=== PATIENT | female | born 1955 | race Caucasian/White ===

== ENCOUNTER 2020-09-05 18:56 | Emergency (ER) | payer OTHER, SELFPAY ==
--- NOTE | ~2020-09-05 | CT_ITS ---
EXAMINATION: CT brain wo con DATE: 09/05/2020 19:25 INDICATION: Head injury post fall while anticoagulated. TECHNIQUE: Computed tomography (CT) of the head was performed without intravenous contrast. Sagittal and coronal reconstructions were performed. The mA was adjusted according to patient size. Iterative reconstruction technique was employed. The dose-length product was 605.33 mGy-cm. COMPARISON: None FINDINGS: No actual. No acute intracranial hemorrhage, acute infarction or abnormal extra axial fluid collectio n. There is mild scattered white matter hypoattenuation consistent with chronic small vessel ischemic disease. Ventricles are normal and symmetric. No mass/mass effect. The orbits, paranasal sinuses an d mastoid air cells are normal. IMPRESSION: 1. No fracture or acute intracranial process. 2. Mild scattered white matter hypoattenuation consistent with chronic small vessels ischemic disease . Reviewed, dictated and finalized at location A. EMS SECURITY CONSULTANT IMPRESSION: 1. No fracture or acute intracranial process. 2. Mild scattered white matter hypoattenuation consistent with chronic small ve ssels ischemic disease.
--- NOTE | ~2020-09-05 | XR_ITS ---
EXAMINATION: XR wrist RT min 3V DATE: 09/05/2020 19:31 INDICATION: Right wrist pain post fall TECHNIQUE: Posteroanterior, oblique, and lateral views of the right wrist were obtained. COMPARISON: none FINDINGS: Transverse metaphyseal fracture of the distal right radius with approximately 4 mm posterior displace ment and with posterior angulation resulting in 30 degrees dorsal tilt of the distal articular surfac e. Small minimally displaced ulnar styloid avulsion fracture. Mild polyarticular osteoarthritis at th e triscaphe, first carpometacarpal and multiple metacarpophalangeal and interphalangeal joints. Diffu se osteopenia. IMPRESSION: 1. Dorsally displaced and angulated extra-articular fracture of the distal right radial metaphysis. 2. Mild distraction of an older styloid avulsion fracture. Signed Reviewed, dictated and finalized at location A. ICE SUPERVISOR IMPRESSION: 1. Dorsally displaced and angulated extra-articular fracture of the distal righ t radial metaphysis. 2. Mild distraction of an older styloid avulsion fracture. Signed
--- NOTE | ~2020-09-05 | XR_ITS ---
EXAMINATION: XR wrist RT 2V DATE: 09/05/2020 21:44 INDICATION: Postreduction right wrist fracture TECHNIQUE: Posteroanterior and lateral views of the right wrist were obtained. COMPARISON: none FINDINGS: Interval partial reduction of the extra articular distal right radial metaphyseal fracture with decre ase in the degree of dorsal angulation with now 10 degrees dorsal tilt of the distal articular surfac e. Minimal decrease in now 3 mm dorsal displacement. Fiberglas splinting material about the right wri st and forearm obscures fine bone and soft tissue detail including the previously noted mildly displa candy ulnar styloid avulsion fracture. No other fractures identified. Mild polyarticular osteoarthritis at the right hand. IMPRESSION: 1. Some improvement in now mild dorsal displacement and dorsal angulation and extra-articular distal right radial fracture. 2. No significant change in a mildly displaced ulnar styloid avulsion fracture. Reviewed, dictated and finalized at location A. LOCK HEMMER IMPRESSION: 1. Some improvement in now mild dorsal displacement and dorsal angulation and e xtra-articular distal right radial fracture. 2. No significant change in a mildly displaced ulnar styloid avulsion fracture.
[2020-09-05 19:03] VITALS: BP 153/119; PULSE 66; RESP 14; TEMP 36.4; O2SAT 99
--- NOTE | 2020-09-05 19:31 | ED.FALL ---
HPI - Fall General Chief Complaint: Fall Stated Complaint: Fall, Right Wrist Injury Time Seen by Provider: 09/05/20 19:13 Source: patient Mode of arrival: ambulatory Limitations: no limitations History of Present Illness HPI Narrative: Patient 65-year-old female complaining of head injury and right wrist pain after she tripped and fell over her [place] lights outside of her house. Patient denies any loss of consciousness. Patient was able to ambulate after the fall. Patient denies any neck, chest, back, hip, pelvis or any other extremity pain/injury. MD complaint: fall Fall from: standing Fall witnessed: no Place fall occurred: home Loss of consciousness: none Prolonged down time: no Symptoms prior to fall: none Context: tripped/slipped Related Data Home Medications Medication Instructions Recorded Confirmed aspirin 81 mg tablet,delayed 81 mg PO DAILY 07/11/20 07/11/20 release clopidogrel 75 mg tablet 75 mg PO DAILY 07/11/20 07/11/20 famotidine 40 mg tablet 40 mg PO DAILY 07/11/20 07/11/20 fluoxetine 40 mg capsule 40 mg PO DAILY 07/11/20 07/11/20 icosapent ethyl 1 gram capsule 2 gm PO BID 07/11/20 07/11/20 insulin glargine 100 unit/mL (3 40 unit SUB-Q DAILY 07/11/20 07/11/20 mL) subcutaneous pen metoprolol tartrate 25 mg tablet 25 mg PO DAILY 07/11/20 07/11/20 pioglitazone 45 mg tablet 45 mg PO DAILY 07/11/20 07/11/20 quinapril 10 mg tablet 10 mg PO DAILY 07/11/20 07/11/20 simvastatin 80 mg tablet 80 mg PO DAILY 07/11/20 07/11/20 Allergies Allergy/AdvReac Type Severity Reaction Status Date / Time codeine AdvReac Intermediate NAUSEA/VOMI Verified 09/05/20 19:17 TING nitroglycerin AdvReac Mild PASTE= Verified 09/05/20 19:17 MILD RASH Review of Systems Review of Systems: All systems reviewed & are unremarkable except as noted in HPI and below Constitutional: Constitutional: Denies body ache(s), Denies chills, Denies excessive sweating, Denies fatigue, Denies fever(s), Denies headache(s), Denies lethargy, Denies malaise, Denies weakness and Denies weight loss Eyes: Eyes: Denies blurry vision, Denies change in vision and Denies loss of vision ENT: Denies dizziness, Denies ear discharge, Denies headache(s), Denies lip swelling, Denies epistaxis, Denies nasal congestion, Denies neck pain, Denies throat swelling and Denies tongue swelling Cardiovascular: Cardiovascular: Denies chest pain, Denies chest pain at rest, Denies chest pain with activity, Denies diaphoresis, Denies rapid heart rate, Denies edema, Denies irregular heart rhythm, Denies lightheadedness, Denies palpitations, Denies dyspnea and Denies dyspnea on exertion Respiratory: Respiratory: Denies chest congestion, Denies cough, Denies hemoptysis, Denies dyspnea and Denies dyspnea on exertion Gastrointestinal: Gastrointestinal: Denies abdominal pain, Denies melena, Denies hematochezia, Denies diarrhea, Denies nausea, Denies vomiting and Denies hematemesis Musculoskeletal: Musculoskeletal: Denies abnormal gait, Denies neck pain and Denies numbness Neurologic: Denies Abnormal speech present, Denies abnormal gait, Denies confusion, Denies dizziness, Denies headache(s), Denies focal weakness, Denies loss of vision, Denies numbness, Denies Other visual disturbances, Denies Sensory deficit (Neuro) and Denies weakness Psychiatric: Psychiatric: Denies confusion, Denies depression, Denies auditory hallucinations, Denies homicidal ideation and Denies suicidal ideation Endocrine: Endocrine: Denies cold intolerance, Denies excessive sweating, Denies fatigue, Denies heat intolerance and Denies palpitations Hematologic/Lymphatic: Hematologic/Lymphatic: Denies easy bleeding and Denies easy bruising Allergic/Immunologic: Allergic/Immunologic: Denies lip swelling, Denies throat swelling and Denies tongue swelling [facility] Past Medical History Medical History (Updated 09/05/20 @ 20:49 by Justino Jama MD) BMI 34.0-34.9,adult Diabetes last A1C 10.06 March 2020
[2020-09-05] MEDS: ACETAMINOPHEN 325 MG TABLET 650 MG PO (19:35)
[2020-09-05] MEDS: ONDANSETRON HCL ODT 4 MG TABLET PO (20:39)
[2020-09-05] MEDS: HYDROmorphone HCL INJ (*CRX) 1 MG/ML SYR IM (20:39)
--- NOTE | 2020-09-05 21:37 | PC.NURSE ---
erp dr joe reduced wrist and sugar tong applied and reviewed.
[2020-09-05] MEDS: HYDROcodone/acetaminophen (*CRX) 5-325 MG TABLET 1 TAB PO (22:12)
== END 2020-09-05 22:21 | disposition home or self-care (01) ==
PROVIDERS: Emergency Provider Emergency Medicine; PCP Registered Nurse
DX: S52.501A Unspecified fracture of the lower end of right radius, initial encounter for closed fracture (principal); S01.81XA Laceration without foreign body of other part of head, initial encounter; E11.9 Type 2 diabetes mellitus without complications; I10 Essential (primary) hypertension; W01.0XXA Fall on same level from slipping, tripping and stumbling without subsequent striking against object, initial encounter; Z79.4 Long term (current) use of insulin
CPT/HCPCS: 12011; 25605; 70450; 73100; 73110; 96372; 99285; A9270; J1170

== ENCOUNTER 2020-09-21 02:20 | Outpatient (CLI) | payer OTHER, SELFPAY ==
[2020-09-21 19:59] LABS: SARS-CoV-2 RNA PCR Negative
== END 2020-09-21 02:21 | disposition home or self-care (01) ==
LOC: ANHCOVIDDT 02:21
PROVIDERS: PCP Registered Nurse; Visit Provider Orthopaedic Surgery
DX: Z01.812 Encounter for preprocedural laboratory examination (principal); Z20.828 Contact with and (suspected) exposure to other viral communicable diseases
CPT/HCPCS: 87635; C9803; U0003

== ENCOUNTER 2020-09-24 02:05 | Day surgery (SDC) | payer OTHER, SELFPAY ==
[2020-09-21 13:00] VITALS: BMI 34.2
--- NOTE | ~2020-09-24 | XR_ITS ---
EXAMINATION: XR surgery orthopedic DATE: 09/24/2020 15:52 INDICATION: Distal right radius fracture. TECHNIQUE: 3 intraoperative fluoroscopic views of right wrist were obtained. I was not present. Fluor oscopy exposure time was 31 seconds. COMPARISON: Right wrist radiographs 09/20/2020, 09/07/2020 FINDINGS: There is a fracture of distal radius status post open reduction interval fixation with vola r plate and screws. There is 1 degree palmar tilt of the distal articular surface. There is a fractur e of the ulnar styloid. IMPRESSION: 1. Distal radius fracture status post open reduction internal fixation. 2. Avulsion fracture of the ulnar styloid. Reviewed, dictated and finalized at location A. WINDOW AND DOOR CRAFTSMAN
--- NOTE | 2020-09-24 06:55 | WPDHPUPDATE1 ---
History and Physical Update Update Date/Time: 09/24/20 06:55 History and Physical has been reviewed, including an updated exam of the patient. There are NO changes in the patient's condition. Covid test negative. Risks, benefits, and alternatives have been discussed and questions answered. Patient agrees to proceed with procedure.
--- NOTE | 2020-09-24 13:00 | WPDANESEPPF ---
Anes - Initial Pre Proc Eval Procedure: Operation Date: 09/24/20 14:00 Proposed Procedures p Open Reduction Internal Fixation Right Wrist - Kvng Martínez MD Date/Time: 09/24/20 13:00 Surgeon: Kvng Martínez MD Pre Op Diagnosis: Right Wrist Fracture Patient Data Age: 65 Gender: F Height: 1.52 m Weight: 79.54 kg Allergies Allergy/AdvReac Type Severity Reaction Status Date / Time codeine AdvReac Intermediate NAUSEA/VOMI Verified 09/21/20 12:55 TING nitroglycerin AdvReac Mild PASTE= Verified 09/21/20 12:55 MILD RASH Home Medications Medication Instructions Recorded Confirmed Type clopidogrel 75 mg tablet 75 mg PO DAILY 07/11/20 09/21/20 History famotidine 40 mg tablet 40 mg PO DAILY 07/11/20 09/21/20 History fluoxetine 40 mg capsule 40 mg PO DAILY 07/11/20 09/21/20 History icosapent ethyl 1 gram capsule 2 gm PO BID 07/11/20 09/21/20 History insulin glargine 100 unit/mL (3 40 unit SUB-Q DAILY 07/11/20 09/21/20 History mL) subcutaneous pen metoprolol tartrate 25 mg tablet 25 mg PO DAILY 07/11/20 09/21/20 History quinapril 10 mg tablet 10 mg PO DAILY 07/11/20 09/21/20 History simvastatin 80 mg tablet 80 mg PO HS 07/11/20 09/21/20 History tramadol 50 mg tablet 50 mg PO Q6H PRN #30 tablet 09/20/20 09/21/20 Rx Jardiance 25 mg PO DAILY 09/21/20 09/21/20 History pioglitazone [Actos] 15 mg PO DAILY 09/21/20 09/21/20 History hydrocodone-acetaminophen [[place]] 1 tablet PO Q6H PRN #30 tablet 09/24/20 Rx ondansetron HCl [Zofran] 4 mg PO Q8H PRN #10 tablet 09/24/20 Rx Patient hx anesthesia problems: none Family hx anesthesia problems: none PMFSH Past Medical History Medical History (Updated 09/24/20 @ 13:06 by Zaid Bradley DO) Arthritis BMI 34.0-34.9,adult Depression Diabetes last A1C 10.06 March 2020 GERD (gastroesophageal reflux disease) Heart disease Hemoglobin A1c 8.0 percent or greater March of 2020 A1c was 10.2 High cholesterol History of heart attack 2000 Hypertension Myocardial infarction Osteoporosis Vision changes Wears glasses Surgical History Surgical History (Updated 09/24/20 @ 13:06 by Zaid Bradley DO) H/O shoulder surgery bilateral, [id number] H/O: hysterectomy History of cholecystectomy History of coronary artery stent placement x5 Family History Family History Mother Hypertension Heart disease Diabetes mellitus Other Arthritis Depression High cholesterol Kidney disorder Social History Social History Smoking packs per day: 1 Smoking cigarettes per day: 20.0 Smoking status: Former smoker Tobacco type: cigarettes Second hand tobacco smoke exposure: No Smoking end date: 10/05/98 Additional smoking assessment comments: STATES 1PK/DAY/AGE 18 QUIT 1998 Alcohol intake: never Substance use: never Substance use type: does not use Living arrangements: alone Gender identity (if verbalized by the patient): Female Spiritual care concerns: No Anes - Eval Final PreProcedure Day of Procedure 09/24/20 13:00 Patient weight: obese Heart: regular rate and rhythm Lungs: clear to auscultation and normal air movement Airway: Mallampati scale class II Neurological: alert and oriented Last oral intake: >/= 8 hours ASA classification: III Emergent: no Anesthetic plan: proceed Anesthesia type and monitoring: general LMA and standard monitoring Informed Consent: The patient's anesthetic plan and its attendant risks and benefits were discussed with the patient/family/POA. Questions were solicited and answers provided to the satisfaction of the patient/family/POA.
[2020-09-24 13:16] LABS: Glucose Point of Care 158 (65-105)
[2020-09-24] MEDS: ACETAMINOPHEN 500 MG TABLET 1000 MG PO (13:33)
[2020-09-24] MEDS: KETOROLAC 15 MG/ML VIAL (*BKC) IV PUSH (13:33)
[2020-09-24] MEDS: LACTATED RINGERS 1,000 ML 30 ML IV CONT ×2 (13:34→16:05)
--- NOTE | 2020-09-24 13:37 | WPDANESPNB ---
Anes - Peripheral Nerve Block Date/Time: 09/24/20 13:37 I have discussed with the patient/family/POA the placement of a peripheral nerve block for post-operative pain management, including associated risks, benefits, complications, and side effects. Alternative methods of post-operative analgesia were detailed. Questions were solicited and answers provided to the satisfaction of the patient/family/POA. Time-Out: A pre-procedural Time-Out was completed immediately before starting the procedure and confirmed: Patient Identification, Site, Procedure, Patient Position and the Availability of Requisite Equipment. Clinical Indications: Acute post-operative pain management requested by the operative surgeon. Nerve Block Insertion Note Anes-nerve block: supraclavicular right Patient position: supine Skin prep: chlorhexidine Needle: 22 gauge, stimulating, insulated echogenic needle. Needle length: 50 mm Technique: ultrasound Injectate: bupivacaine 0.5% with epi 5 mcg/ml (30cc) Observations: tolerated well Complications: none Procedure start time:: 1410 Procedure end time:: 141
[2020-09-24] MEDS: ceFAZolin 2 GM/D5W 50 ML 2 GM/50 ML BAG IVPB (14:47)
--- NOTE | 2020-09-24 16:01 | P.OP_ITS ---
Procedure Note - Detailed Date of procedure: 09/24/20 Pre-op diagnosis: Right Wrist Fracture Post-op diagnosis: same Procedure performed: Open reduction internal fixation of right wrist intra- articular fracture Description of procedure: Indications: Patient is a 65-year-old wo man who fell onto right outstretched hand and sustained a distal radius fracture with intra-articular extension and comminution. Fracture has displacement and ang ulation, unacceptable alignment. The patient presents for operative treatment. Full discussion of risks, benefits and alternatives had with the patient. Patient verbalized understanding and wishes to proceed. What was done: After informed consent the operative extremity was marked in the preoperative holding area. Patient received intravenous antibiotics. Patient taken to the operating room where they underwent general anesthesia. Positioned supine on operating table. Time-out performed confirming the patient, patient's site of surgery and the plan. Right upper extremity prepped and draped in the usual sterile surgical fashion using a ChloraPrep skin solution. Hand and wrist exsanguinated and arm tourniquet inflated to 225 mmHg. Standard volar flexor carpi radialis incision utilized. Fifteen blade knife used to make longitudinal incision. Flexor carpi radialis tendon identified tendon sheath incised in line with skin incision. Tendon retracted to protect the neurovascular elements. Floor of the tendon sheath incised with a 15 blade knife. Flexor pollicis retracted medial. pronator quadratus then divided off the watershed line and reflected ulnarward to expose the distal radius and the fracture. Fracture was then reduced provisionally pinned. Image intensification confirm reduction. Fixation achieved with the distal radius volar plate. This was provisionally pinned into place and confirmed with image intensification. Fixation to the proximal fragment with a 3.5 mm screw. Distal fracture fixation achieved with 2.0 mm locking pegs and 2.0 mm fully threaded locking screws for the radial styloid. Fixation was then completed proximally with the remaining 3.5 mm screws. Final reduction of the fracture, alignment of the wrist joint and placement of the hardware verified with image intensification. Wound thoroughly irrigated with antibiotic solution. Pronator repaired with 3 0 Monocryl interrupted suture. Skin closed with interrupted subcutaneous 000 Monocryl interrupted suture and running 000 Monocryl subcuticular stitch. Local anesthetic with 0.5% Marcaine. Sterile dressing applied. Padded dressing and splint then applied. Tourniquet released and good capillary refill noted in the fingers and thumb. Patient awoke from anesthesia, extubated and taken to the recovery room in stable condition. All sponge and instrument counts correct at the end of case. Implants: Biomet volar distal radius locking plate with 3.5 mm screws x3 and 2.0 mm locking pegs Anesthesia: GLMA Surgeon: Kvng Martínez MD Airconditioning Plant Operator: 1st surveyor instrument assistant Estimated blood loss (mL): 10 Tourniquet time (min): 45 Drains: No Packing: No Pathology: none sent Complications: None Condition: stable Disposition: PACU
[2020-09-24 16:05] VITALS: BP 183/83; PULSE 83; RESP 13; TEMP 36.1; O2SAT 100
[2020-09-24 16:20] VITALS: BP 185/75; PULSE 71; RESP 14; TEMP 36.2; O2SAT 100
[2020-09-24 16:22] LABS: Glucose Point of Care 120 (65-105)
[2020-09-24 16:35] VITALS: BP 182/82; PULSE 69; RESP 13; TEMP 36.1; O2SAT 96
[2020-09-24 16:42] VITALS: BP 188/80; PULSE 76; RESP 16
[2020-09-24 17:20] VITALS: BP 188/53; PULSE 67; RESP 16
--- NOTE | 2020-09-24 17:32 | SUR.PHASEII ---
PT ASSISTED TO GET DRESSED D/T RIGHT ARM NERVE BLOCK.
== END 2020-09-24 17:56 | disposition home or self-care (01) ==
PROVIDERS: PCP Registered Nurse; Visit Provider Orthopaedic Surgery
PROC: (CPT 25575; principal; 2020-09-24 14:00)
DX: S52.571A Other intraarticular fracture of lower end of right radius, initial encounter for closed fracture (principal); W19.XXXA Unspecified fall, initial encounter; G89.18 Other acute postprocedural pain; E11.9 Type 2 diabetes mellitus without complications; I11.9 Hypertensive heart disease without heart failure; E78.00 Pure hypercholesterolemia, unspecified; I25.2 Old myocardial infarction; M81.0 Age-related osteoporosis without current pathological fracture; K21.9 Gastro-esophageal reflux disease without esophagitis; M19.90 Unspecified osteoarthritis, unspecified site; F32.9 Major depressive disorder, single episode, unspecified; Z95.5 Presence of coronary angioplasty implant and graft; Z87.891 Personal history of nicotine dependence; E66.9 Obesity, unspecified; Z68.34 Body mass index [BMI] 34.0-34.9, adult; Z79.02 Long term (current) use of antithrombotics/antiplatelets; Z79.4 Long term (current) use of insulin
CPT/HCPCS: 25608; 64415; A4565; A9270; C1713; C9803; J0690; J1100; J1885; J2250; J2405; J2704; J3010; J7120; U0003

== ENCOUNTER 2021-03-14 15:05 | Emergency (ER) | payer OTHER, SELFPAY ==
[2021-03-14 15:21] VITALS: BP 145/66; PULSE 120; RESP 16; TEMP 36.1; O2SAT 96
[2021-03-14 15:25] VITALS: BP 159/74; PULSE 107
[2021-03-14 15:44] LABS: Hemoglobin 15.7 g/dL (12.0-15.0); Immature Platelet Fraction Pct 7.9 % (0.9-11.2); Mean Corpuscular HGB Conc 32.7 g/dl (32-36); Mean Corpuscular Hemoglobin 29.5 pg (26-34); Mean Corpuscular Volume 90.2 fl (80-100); Mean Platelet Volume 11.8 fl (7.4-10.4); Platelet Count Result 125 k/mm3 (150-375); Red Blood Count 5.32 M/mm3 (4.2-5.4); Red Cell Distribution Width 13.9 % (11.5-14.5); White Blood Count 4.8 K/mm3 (4.5-10.0)
[2021-03-14 15:53] LABS: Alanine Aminotransferase 149 U/L (4-35); Albumin Level 4.2 g/dL (3.5-5.1); Alkaline Phosphatase 160 U/L (38-126); Anion Gap 12 mmol/L (8-16); Aspartate Amino Transferase 226 U/L (14-36); Blood Urea Nitrogen 32 mg/dL (7-17); Calcium 9.8 mg/dL (8.4-10.2); Carbon Dioxide 25 mmol/L (22-30); Chloride 94 mmol/L (98-107); Estimated CRCL calculation 41 ml/min; Estimated Glomerular Filt Rate 50; Glucose 348 mg/dL (65-105); Lipase 223 U/L (23-300); Potassium 4.8 mmol/L (3.4-5.0); Sodium 131 mmol/L (137-145)
[2021-03-14 16:10] LABS: Band Neutrophils Percent 4 % (0-6); Lymphocytes Absolute Manual 1.92 K/mm3 (1.1-4.5); Monocytes Absolute Manual 0.57 K/mm3 (0.1-0.90); Monocytes Percent Manual 12 % (3-9); Neutrophils Percent Manual 44 % (46-73); Total Cells Counted 100
[2021-03-14 16:28] LABS: Add Urine Microscopic? YES; Appearance Urine Cloudy (Clear); Bilirubin Urine 1+ (Negative); Blood Urine 1+ (Negative); Color Urine Amber (Yellow); Glucose Urine UA 2+ mg/dL (Negative); Hyaline Casts Urine 20-29 /lpf; Ketones Urine Negative (Negative); Leukocyte Esterase Ur Negative LEU/UL (Negative); Mucus Urine Heavy /lpf; Nitrate Urine Negative (Negative); Protein Urine 2+ mg/dL (Negative); Specific Grav Ur 1.028 (1.001-1.035); Squamous Epithelial Cell Urine Many /hpf (Few); WBC Urine 0-3 /hpf
[2021-03-14 16:56] VITALS: BP 126/70; PULSE 112
[2021-03-14 16:57] VITALS: BP 104/60; PULSE 122
[2021-03-14 17:03] VITALS: BP 126/70; PULSE 109; O2SAT 97
[2021-03-14] MEDS: SODIUM CHLORIDE 0.9% IV 1,000 ML 999 ML IV CONT (17:22)
[2021-03-14] MEDS: ONDANSETRON INJ 4 MG/2 ML VIAL IV PUSH (17:22)
--- NOTE | 2021-03-14 17:46 | ED.NAVMDI ---
HPI - Nausea/Vomiting/Diarrhea General Chief complaint: Nausea/Vomiting/Diarrhea Stated complaint: SICK SINCE THURSDAY N/V/D Time Seen by Provider: 03/14/21 16:18 Source: patient Mode of arrival: ambulatory Limitations: no limitations History of Present Illness HPI Narrative: 65-year-old with a history of hypertension diabetes here with complaints of nausea, vomiting and diarrhea since yesterday. She states that she had multiple episodes of vomiting since morning. She denies any fever or chills. Has mild abdominal cramping. MD elicited complaint: nausea, vomiting, diarrhea and abdominal pain Onset (ago): day(s) (1) Associated abdominal pain: Yes Location of pain: epigastric Exacerbating factors: none Relieving factors: none Related Data Home Medications Medication Instructions Recorded Confirmed clopidogrel 75 mg tablet 75 mg PO DAILY 07/11/20 12/12/20 famotidine 40 mg tablet 40 mg PO DAILY 07/11/20 12/12/20 fluoxetine 40 mg capsule 40 mg PO DAILY 07/11/20 12/12/20 icosapent ethyl 1 gram capsule 2 gm PO BID 07/11/20 12/12/20 insulin glargine 100 unit/mL (3 40 unit SUB-Q DAILY 07/11/20 12/12/20 mL) subcutaneous pen metoprolol tartrate 25 mg tablet 25 mg PO DAILY 07/11/20 12/12/20 quinapril 10 mg tablet 10 mg PO DAILY 07/11/20 12/12/20 simvastatin 80 mg tablet 80 mg PO HS 07/11/20 12/12/20 Jardiance 25 mg PO DAILY 09/21/20 12/12/20 pioglitazone [Actos] 15 mg PO DAILY 09/21/20 12/12/20 Allergies Allergy/AdvReac Type Severity Reaction Status Date / Time codeine AdvReac Intermediate NAUSEA/VOMI Verified 12/12/20 10:14 TING nitroglycerin AdvReac Mild PASTE= Verified 12/12/20 10:14 MILD RASH Review of Systems Review of Systems: All systems reviewed & are unremarkable except as noted in HPI and below Constitutional: Constitutional: Reports no additional constitutional complaints Eyes: Eyes: Reports no additional eye complaints ENT: Reports system reviewed and no additional complaints, except as documented Cardiovascular: Cardiovascular: Reports no additional cardiovascular complaints Respiratory: Respiratory: Reports no additional respiratory complaints Gastrointestinal: Gastrointestinal: Reports as per HPI Musculoskeletal: Musculoskeletal: Reports no additional musculoskeletal complaints PMFSH Past Medical History Medical History Arthritis BMI 34.0-34.9,adult Depression Diabetes last A1C 10.06 March 2020 GERD (gastroesophageal reflux disease) Heart disease Hemoglobin A1c 8.0 percent or greater March of 2020 A1c was 10.2 High cholesterol History of heart attack 2000 Hypertension Myocardial infarction Osteoporosis Vision changes Wears glasses Surgical History Surgical History H/O shoulder surgery bilateral, [id number] H/O: hysterectomy History of cholecystectomy History of coronary artery stent placement x5 Family History Family History Mother Hypertension Heart disease Diabetes mellitus Other Arthritis Depression High cholesterol Kidney disorder Social History Social History Smoking packs per day: 1 Smoking cigarettes per day: 20.0 Tobacco type: cigarettes Second hand tobacco smoke exposure: No Smoking end date: 10/05/98 Additional smoking assessment comments: STATES 1PK/DAY/AGE 18 QUIT 1998 Alcohol intake: never Substance use: never Substance use type: does not use Gender identity (if verbalized by the patient): Female Spiritual care concerns: No Exam Narrative: Exam Narrative: GENERAL: Well-appearing, well-nourished, and in no acute distress. HEAD: Normocephalic, atraumatic. EYES: PERRLA and EOMI. NECK: Supple. CHEST: Clear to auscultation. No respiratory distress. HEART: Regular rate and rhythm. No murmur heard. Normal kathya
[2021-03-14 18:40] VITALS: BP 145/62; PULSE 95; RESP 16; O2SAT 99
--- NOTE | 2021-04-02 08:33 | PC.NURSE ---
LATE ENTRY This note is being entered to document information to the patient's record. The following information was omitted on [03/14/21], by [Diane Milligan RN]. NS stop time is 1814.
--- NOTE | 2021-04-04 16:29 | PC.NURSE ---
IV Fluids infused at 1830 on 03/14/21
== END 2021-03-14 18:28 | disposition home or self-care (01) ==
PROVIDERS: Emergency Medicine; Emergency Provider Family Medicine; PCP Registered Nurse
DX: K52.9 Noninfective gastroenteritis and colitis, unspecified (principal); E11.9 Type 2 diabetes mellitus without complications; M19.90 Unspecified osteoarthritis, unspecified site; F32.9 Major depressive disorder, single episode, unspecified; K21.9 Gastro-esophageal reflux disease without esophagitis; E78.00 Pure hypercholesterolemia, unspecified; I25.2 Old myocardial infarction; I11.9 Hypertensive heart disease without heart failure; M81.0 Age-related osteoporosis without current pathological fracture; Z95.5 Presence of coronary angioplasty implant and graft; Z79.899 Other long term (current) drug therapy; Z79.4 Long term (current) use of insulin; Z87.891 Personal history of nicotine dependence
CPT/HCPCS: 36415; 80053; 81001; 83690; 85025; 85055; 96361; 96374; 99284; J2405; J7030

== ENCOUNTER 2021-10-23 01:01 | Day surgery (SDC) | payer MEDICARE, SELFPAY ==
[2021-10-17 11:53] VITALS: BMI 33.1
--- NOTE | 2021-10-23 07:33 | WPDANESEPPF ---
Anes - Initial Pre Proc Eval Procedure: Operation Date: 10/23/21 10:30 Proposed Procedures p Screening Colonoscopy - Evan Morales MD Date/Time: 10/23/21 07:33 Surgeon: Evan Morales MD Pre Op Diagnosis: neoplasm screening Patient Data Age: 66 Gender: F Height: 1.52 m Weight: 77 kg Allergies Allergy/AdvReac Type Severity Reaction Status Date / Time codeine AdvReac Intermediate NAUSEA/VOMI Verified 10/23/21 09:24 TING nitroglycerin AdvReac Mild PASTE= Verified 10/23/21 09:24 MILD RASH Home Medications Medication Instructions Recorded Confirmed Type clopidogrel 75 mg tablet 75 mg PO DAILY 07/11/20 10/23/21 History famotidine 40 mg tablet 40 mg PO DAILY 07/11/20 10/23/21 History fluoxetine 40 mg capsule 40 mg PO DAILY 07/11/20 10/23/21 History insulin glargine 100 unit/mL (3 50 unit SUB-Q QPM 07/11/20 10/23/21 History mL) subcutaneous pen metoprolol tartrate 25 mg tablet 25 mg PO DAILY 07/11/20 10/23/21 History simvastatin 80 mg tablet 80 mg PO HS 07/11/20 10/23/21 History Jardiance 25 mg PO DAILY 09/21/20 10/23/21 History pioglitazone [Actos] 15 mg PO DAILY 09/21/20 10/23/21 History omega-3 fatty acids-vitamin E 1 cap PO DAILY 10/17/21 10/23/21 History [Fish Oil] quinapril 40 mg PO DAILY 10/17/21 10/23/21 History Patient hx anesthesia problems: none Family hx anesthesia problems: none Results Review: All pre-operative results and documents have been reviewed as part of the pre-operative evaluation. [facility] Past Medical History Medical History (Updated 10/23/21 @ 07:33 by Zaid Bradley DO) Arthritis BMI 34.0-34.9,adult CAD (coronary artery disease) Depression Diabetes last A1C 10.06 March 2020 GERD (gastroesophageal reflux disease) Heart disease Hemoglobin A1c 8.0 percent or greater March of 2020 A1c was 10.2 High cholesterol History of heart attack 2000 Hypertension Left knee DJD Myocardial infarction Osteoporosis Right knee DJD TIA (transient ischemic attack) Vision changes Wears glasses Surgical History Surgical History H/O shoulder surgery bilateral, [id number] H/O: hysterectomy History of cholecystectomy History of coronary artery stent placement x5 Family History Family History Mother Hypertension Heart disease Diabetes mellitus Other Arthritis Depression High cholesterol Kidney disorder Social History Social History Smoking packs per day: 1 Smoking cigarettes per day: 20.0 Years smoked: 30 Smoking pack-years: 30.00 Smoking status: Former smoker Tobacco type: cigarettes Second hand tobacco smoke exposure: No Smoking end date: 10/05/98 Additional smoking assessment comments: STATES 1PK/DAY/AGE 18 QUIT 1998 Alcohol intake: never Substance use: never Substance use type: does not use Living arrangements: with family Gender identity (if verbalized by the patient): Female Spiritual care concerns: No Anes - Eval Final PreProcedure Day of Procedure 10/23/21 07:33 Patient weight: obese Heart: regular rate and rhythm Lungs: clear to auscultation and normal air movement Airway: Mallampati scale class II Neurological: alert and oriented Last oral intake: >/= 8 hours ASA classification: III Emergent: no Anesthetic plan: proceed Anesthesia type and monitoring: general GIVS and standard monitoring Results Review: All pre-operative results and documents have been reviewed as part of the pre-operative evaluation. Informed Consent: The patient's anesthetic plan and its attendant risks and benefits were discussed with the patient/family/POA. Questions were solicited and answers provided to the satisfaction of the patient/family/POA.
[2021-10-23 09:15] VITALS: BP 141/67; PULSE 63; RESP 16; TEMP 36.7; O2SAT 97; BMI 33.4
[2021-10-23] MEDS: LACTATED RINGERS 1,000 ML 150 ML IV CONT (09:38)
[2021-10-23 09:47] LABS: Glucose Point of Care 149 mg/dl (65-105)
--- NOTE | 2021-10-23 10:12 | PM.HPGS ---
History of Present Illness History of Present Illness Consent: Risks, benefits, and alternatives have been discussed and questions answered. Patient agrees to proceed with procedure. Chief complaint: neoplasm screening Narrative: Zahra Muhammad is a 66 year old female here for screening colonoscopy, last one over 5 years ago. Review of Systems Constitutional: Constitutional: Denies headache(s) and Denies weakness Eyes: Eyes: Denies blurry vision ENT: Reports Normal hearing present, Denies headache(s) and Denies neck pain Cardiovascular: Cardiovascular: Denies chest pain and Denies dyspnea Respiratory: Respiratory: Denies dyspnea Gastrointestinal: Gastrointestinal: Reports no additional gastrointestinal complaints Genitourinary: Genitourinary: Denies dysuria Musculoskeletal: Musculoskeletal: Denies neck pain Integumentary/Breasts: Skin/Breast: Denies dry skin Neurologic: Reports Normal hearing present, Denies headache(s) and Denies weakness Psychiatric: Psychiatric: Denies anxiety Endocrine: Endocrine: Denies change in body appearance Hematologic/Lymphatic: Hematologic/Lymphatic: Denies easy bleeding Allergic/Immunologic: Allergic/Immunologic: Denies urticaria PMFSH Past Medical History Medical History (Updated 10/23/21 @ 10:13 by Evan Morales MD) Arthritis BMI 34.0-34.9,adult CAD (coronary artery disease) Colon cancer screening Depression Diabetes last A1C 10.06 March 2020 GERD (gastroesophageal reflux disease) Heart disease Hemoglobin A1c 8.0 percent or greater March of 2020 A1c was 10.2 High cholesterol History of heart attack 2000 Hypertension Left knee DJD Myocardial infarction Osteoporosis Right knee DJD TIA (transient ischemic attack) Vision changes Wears glasses Surgical History Surgical History H/O shoulder surgery bilateral, [id number] H/O: hysterectomy History of cholecystectomy History of coronary artery stent placement x5 Family History Family History Mother Hypertension Heart disease Diabetes mellitus Other Arthritis Depression High cholesterol Kidney disorder Social History Social History Smoking packs per day: 1 Smoking cigarettes per day: 20.0 Years smoked: 30 Smoking pack-years: 30.00 Smoking status: Former smoker Tobacco type: cigarettes Second hand tobacco smoke exposure: No Smoking end date: 10/05/98 Additional smoking assessment comments: STATES 1PK/DAY/AGE 18 QUIT 1998 Alcohol intake: never Substance use: never Substance use type: does not use Living arrangements: with family Gender identity (if verbalized by the patient): Female Spiritual care concerns: No Meds Home Medications and Allergies Home Medications Medication Instructions Recorded Confirmed Type clopidogrel 75 mg tablet 75 mg PO DAILY 07/11/20 10/23/21 History famotidine 40 mg tablet 40 mg PO DAILY 07/11/20 10/23/21 History fluoxetine 40 mg capsule 40 mg PO DAILY 07/11/20 10/23/21 History insulin glargine 100 unit/mL (3 50 unit SUB-Q QPM 07/11/20 10/23/21 History mL) subcutaneous pen metoprolol tartrate 25 mg tablet 25 mg PO DAILY 07/11/20 10/23/21 History simvastatin 80 mg tablet 80 mg PO HS 07/11/20 10/23/21 History Jardiance 25 mg PO DAILY 09/21/20 10/23/21 History pioglitazone [Actos] 15 mg PO DAILY 09/21/20 10/23/21 History omega-3 fatty acids-vitamin E 1 cap PO DAILY 10/17/21 10/23/21 History [Fish Oil] quinapril 40 mg PO DAILY 10/17/21 10/23/21 History Allergies Allergy/AdvReac Type Severity Reaction Status Date / Time codeine AdvReac Intermediate NAUSEA/VOMI Verified 10/23/21 09:24 TING nitroglycerin AdvReac Mild PASTE= Verified 10/23/21 09:24 MILD RASH Vital Signs Vital Signs - 24 hr 10/23/21 09:15 Temperature 98.0 F Pulse Rate 63 Respiratory
[2021-10-23 10:30] VITALS: BP 88/48; PULSE 56; RESP 14; O2SAT 92
[2021-10-23 10:40] VITALS: BP 136/68; PULSE 55; RESP 16; O2SAT 100
[2021-10-23 10:50] VITALS: BP 145/74; PULSE 59; RESP 19; O2SAT 100
== END 2021-10-23 11:03 | disposition home or self-care (01) ==
PROVIDERS: PCP Registered Nurse; Visit Provider Internal Medicine Gastroenterology
PROC: 0DJD8ZZ Inspection of Lower Intestinal Tract, Via Natural or Artificial Opening Endoscopic (ICD-10-PCS; CPT 45378; principal; 2021-10-23 10:30)
DX: Z12.11 Encounter for screening for malignant neoplasm of colon (principal); K64.8 Other hemorrhoids; I11.9 Hypertensive heart disease without heart failure; I25.10 Atherosclerotic heart disease of native coronary artery without angina pectoris; E11.9 Type 2 diabetes mellitus without complications; E78.00 Pure hypercholesterolemia, unspecified; I25.2 Old myocardial infarction; K21.9 Gastro-esophageal reflux disease without esophagitis; F32.9 Major depressive disorder, single episode, unspecified; M81.0 Age-related osteoporosis without current pathological fracture; Z86.73 Personal history of transient ischemic attack (TIA), and cerebral infarction without residual deficits; Z95.5 Presence of coronary angioplasty implant and graft; Z87.891 Personal history of nicotine dependence; Z79.02 Long term (current) use of antithrombotics/antiplatelets; Z79.4 Long term (current) use of insulin; Z79.84 Long term (current) use of oral hypoglycemic drugs
CPT/HCPCS: G0121; 82948; J2704; J7120

== ENCOUNTER 2022-03-09 14:45 | Emergency (ER) | payer MEDICARE, SELFPAY ==
--- NOTE | ~2022-03-09 | XR_ITS ---
EXAM: XR ankle LT min 3V, XR tibia fibula LT 2V DATE: 03/09/2022 16:02 HISTORY: fall , proximal tib-fib pain. COMPARISON: None available. FINDINGS: Decreased mineralization. Oblique nondisplaced left distal fibular fracture extending roug hly to the level of the joint line. No other fracture detected. No lytic or blastic lesion. Degenerat naomi change at the tibiotalar articulation. Plantar and Achilles enthesopathy. No erosion or periostea l change. Left ankle joint effusion. Anterior and lateral ankle joint swelling. IMPRESSION: [place] B type left fibular fracture. Left ankle joint effusion. Left ankle swelling. Reviewed, dictated and finalized at location [facility]. IMPRESSION: [place] B type left fibular fracture. Left ankle joint effusion. Left ankle swelling.
--- NOTE | ~2022-03-09 | XR_ITS ---
EXAM: XR hip RT min 2V DATE: 03/09/2022 16:02 HISTORY: fall . COMPARISON: None available. FINDINGS: Decreased mineralization. No fracture or dislocation. No lytic or blastic lesion. Degenera tive changes in the SI joint and right hip. No erosion or periosteal change. Soft tissues within norm al limits. IMPRESSION: No acute osseous finding in the right hip. Reviewed, dictated and finalized at location [facility].
[2022-03-09 14:50] VITALS: BP 147/45; PULSE 59; RESP 18; TEMP 36.2; O2SAT 100
--- NOTE | 2022-03-09 15:29 | ED.GENADULT ---
HPI - General Adult General Chief complaint: Extremity Injury, Lower Stated complaint: Ankle pain Time Seen by Provider: 03/09/22 14:56 History of Present Illness HPI narrative: 66-year-old female presenting to the emergency department for evaluation of left ankle pain and right hip pain. Patient states she was working in her yard when she slipped on a wet rock causing her to fall. Patient landed on her right hip but her left ankle was underneath her. Patient states she was able to get up on her own and was able to weight-bear on the right. Patient states she was having significant pain at the left ankle. Patient denies striking her head denies any loss of consciousness. Related Data Home Medications Medication Instructions Recorded Confirmed clopidogrel 75 mg tablet 75 mg PO DAILY 07/11/20 11/12/21 famotidine 40 mg tablet 40 mg PO DAILY 07/11/20 11/12/21 fluoxetine 40 mg capsule 40 mg PO DAILY 07/11/20 11/12/21 insulin glargine 100 unit/mL (3 50 unit subcut QPM 07/11/20 11/12/21 mL) subcutaneous pen (Konnektidaglar KwikPen U-100 Insulin) metoprolol tartrate 25 mg tablet 25 mg PO DAILY 07/11/20 11/12/21 simvastatin 80 mg tablet 80 mg PO HS 07/11/20 11/12/21 empagliflozin 25 mg tablet 25 mg PO DAILY 09/21/20 11/12/21 (Jardiance) pioglitazone 15 mg tablet (Actos) 15 mg PO DAILY 09/21/20 11/12/21 omega-3 fatty acids-vitamin E 1 cap PO DAILY 10/17/21 10/23/21 1,000 mg capsule quinapril 40 mg tablet 40 mg PO DAILY 10/17/21 10/23/21 Allergies Allergy/AdvReac Type Severity Reaction Status Date / Time codeine AdvReac Intermediate NAUSEA/VOMI Verified 03/09/22 14:53 TING nitroglycerin AdvReac Mild PASTE= Verified 03/09/22 14:53 MILD RASH Review of Systems Review of Systems: CONSTITUTIONAL: Denies fever, chills, or sweats. EYES: Denies visual changes, redness, or discharge. ENT: Denies rhinorrhea, congestion, sore throat, or otalgia. CARDIOVASCULAR: Denies chest pain, palpitations, or edema. RESPIRATORY: Denies cough or dyspnea. GASTROINTESTINAL: Denies abdominal pain, nausea, vomiting, or diarrhea. GENITOURINARY: Denies dysuria or hematuria. SKIN: Denies rash or itching. MUSCULOSKELETAL: See HPI NEUROLOGIC: Denies headache, numbness, or weakness. [facility] Past Medical History Medical History (Updated 03/10/22 @ 17:34 by Jose Carlos Taylor MD) Arthritis BMI 34.0-34.9,adult CAD (coronary artery disease) Colon cancer screening Depression Diabetes last A1C 10.06 March 2020 DJD of right shoulder GERD (gastroesophageal reflux disease) Heart disease Hemoglobin A1c 8.0 percent or greater March of 2020 A1c was 10.2 High cholesterol History of heart attack 2000 Hypertension Left knee DJD Myocardial infarction Osteoporosis Right knee DJD TIA (transient ischemic attack) Vision changes Wears glasses Surgical History Surgical History H/O shoulder surgery bilateral, [id number] H/O: hysterectomy History of cholecystectomy History of coronary artery stent placement x5 Family History Family History Mother Hypertension Heart disease Diabetes mellitus Other Arthritis Depression High cholesterol Kidney disorder Social History Social History Smoking packs per day: 1 Smoking cigarettes per day: 20.0 Years smoked: 30 Smoking pack-years: 30.00 Tobacco type: cigarettes Second hand tobacco smoke exposure: No Smoking end date: 10/05/98 Additional smoking assessment comments: STATES 1PK/DAY/AGE 18 QUIT 1998 Alcohol intake: never Substance use: never Substance use type: does not use Gender identity (if verbalized by the patient): Female Spiritual care concerns: No Exam Narrative: APPEARANCE: Well appearing, no pain, no distress, well-nourished. HEAD: normocephalic, atraumatic. RESPIRATORY: Airway patent, respirations n
[2022-03-09] MEDS: HYDROcodone/acetaminophen (*CRX) 5-325 MG TABLET 1 TAB PO (16:53)
--- NOTE | 2022-04-03 11:20 | PC.NURSE ---
LATE ENTRY This note is being entered to document information to the patient's record. The following information was omitted on [03/09/2022], by [Gilberto Rice]. short leg posterior splint applied to left lower leg.
== END 2022-03-09 17:00 | disposition home or self-care (01) ==
PROVIDERS: Emergency Provider Emergency Medicine; PCP Registered Nurse
DX: S82.832A Other fracture of upper and lower end of left fibula, initial encounter for closed fracture (principal); I25.10 Atherosclerotic heart disease of native coronary artery without angina pectoris; E11.9 Type 2 diabetes mellitus without complications; I25.2 Old myocardial infarction; I10 Essential (primary) hypertension; E78.00 Pure hypercholesterolemia, unspecified; M81.0 Age-related osteoporosis without current pathological fracture; M17.0 Bilateral primary osteoarthritis of knee; K21.9 Gastro-esophageal reflux disease without esophagitis; Z86.73 Personal history of transient ischemic attack (TIA), and cerebral infarction without residual deficits; Z95.5 Presence of coronary angioplasty implant and graft; Z87.891 Personal history of nicotine dependence; W01.0XXA Fall on same level from slipping, tripping and stumbling without subsequent striking against object, initial encounter; Z79.4 Long term (current) use of insulin; Z79.84 Long term (current) use of oral hypoglycemic drugs
CPT/HCPCS: 29515; 73502; 73590; 73610; 99284; A9270

== ENCOUNTER 2022-04-06 20:40 | Emergency (ER) | payer OTHER, MEDICARE, SELFPAY ==
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
[2022-04-06 20:50] VITALS: BP 171/64; PULSE 64; RESP 16; TEMP 36.4; O2SAT 99
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
[2022-04-06 21:30] VITALS: BP 150/58; PULSE 65; RESP 16; O2SAT 98
[2022-04-07 00:01] VITALS: BP 154/53; PULSE 60; TEMP 36.8; O2SAT 100
== END 2022-04-07 00:57 | disposition home or self-care (01) ==
PROVIDERS: Emergency Provider Emergency Medicine; PCP Registered Nurse
DX: S19.9XXA Unspecified injury of neck, initial encounter (principal); I25.10 Atherosclerotic heart disease of native coronary artery without angina pectoris; E11.9 Type 2 diabetes mellitus without complications; I25.2 Old myocardial infarction; I11.9 Hypertensive heart disease without heart failure; E78.00 Pure hypercholesterolemia, unspecified; K21.9 Gastro-esophageal reflux disease without esophagitis; Z79.4 Long term (current) use of insulin; M81.0 Age-related osteoporosis without current pathological fracture; M17.0 Bilateral primary osteoarthritis of knee; Z86.73 Personal history of transient ischemic attack (TIA), and cerebral infarction without residual deficits; Z95.5 Presence of coronary angioplasty implant and graft; Z87.891 Personal history of nicotine dependence; V43.52XA Car driver injured in collision with other type car in traffic accident, initial encounter
CPT/HCPCS: 72125; 99284

== ENCOUNTER 2023-02-22 14:05 | Emergency (ER) | payer MEDICARE, SELFPAY ==
--- NOTE | ~2023-02-22 | XR_ITS ---
EXAM: XR ankle LT min 3V, XR foot LT min 3V DATE: 02/22/2023 16:00 HISTORY: ankle pain, foot pain, NON SPECIFIC PAIN X 1 WEEK . COMPARISON: 03/09/2022. FINDINGS: Normal mineralization. No fracture or dislocation. No lytic or blastic lesion. Moderate Ac hilles and plantar enthesopathy. Moderate hallux valgus. Old distal fifth metatarsal fracture. Old di stal fibular fracture. Old medial malleolar avulsion fragment. Degenerative changes in the tibiotalar joint, hindfoot, and midfoot. No erosion or periosteal change. Soft tissue swelling about the ankle. IMPRESSION: No acute osseous finding in the left ankle or foot. Reviewed, dictated and finalized at location K. IMPRESSION: No acute osseous finding in the left ankle or foot.
[2023-02-22 14:17] VITALS: BP 124/70; PULSE 56; RESP 17; TEMP 36.1; O2SAT 100
--- NOTE | 2023-02-22 15:47 | ED.GENADULT ---
HPI - General Adult General Chief complaint: Extremity Injury, Lower Stated complaint: foot injury Time Seen by Provider: 02/22/23 14:36 History of Present Illness HPI narrative: 67-year-old female presented to the emergency department for evaluation of left foot and ankle pain. Patient states pain has been bothering her for approximate the last week. Patient denies any specific falls or injuries. Patient reports she did break that foot approximately 6 months ago. Patient states the pain does feel similar to when she broke her foot. Patient normally ambulates without a walker but has been using a walker due to the increased pain. Patient denies any other pain or injury. Related Data Home Medications Medication Instructions Recorded Confirmed clopidogrel 75 mg tablet 75 mg PO DAILY 07/11/20 04/08/22 famotidine 40 mg tablet 40 mg PO DAILY 07/11/20 04/08/22 fluoxetine 40 mg capsule 40 mg PO DAILY 07/11/20 04/08/22 insulin glargine 100 unit/mL (3 50 unit subcut QPM 07/11/20 04/08/22 mL) subcutaneous pen (WavecraftPen U-100 Insulin) metoprolol tartrate 25 mg tablet 25 mg PO DAILY 07/11/20 04/08/22 simvastatin 80 mg tablet 80 mg PO HS 07/11/20 04/08/22 empagliflozin 25 mg tablet 25 mg PO DAILY 09/21/20 04/08/22 (Jardiance) pioglitazone 15 mg tablet (Actos) 15 mg PO DAILY 09/21/20 04/08/22 omega-3 fatty acids-vitamin E 1 cap PO DAILY 10/17/21 04/08/22 1,000 mg capsule quinapril 40 mg tablet 40 mg PO DAILY 10/17/21 04/08/22 Allergies Allergy/AdvReac Type Severity Reaction Status Date / Time codeine AdvReac Intermediate NAUSEA/VOMI Verified 02/22/23 14:06 TING nitroglycerin AdvReac Mild PASTE= Verified 02/22/23 14:06 MILD RASH Review of Systems Review of Systems: All systems reviewed & are unremarkable except as noted in HPI and below [facility] Past Medical History Medical History Arthritis BMI 34.0-34.9,adult CAD (coronary artery disease) Colon cancer screening Depression Diabetes last A1C 10.06 March 2020 DJD of right shoulder GERD (gastroesophageal reflux disease) Heart disease Hemoglobin A1c 8.0 percent or greater March of 2020 A1c was 10.2 High cholesterol History of heart attack 2000 Hypertension Left knee DJD Myocardial infarction Osteoporosis Right knee DJD TIA (transient ischemic attack) Vision changes Wears glasses Surgical History Surgical History H/O shoulder surgery bilateral, [id number] H/O: hysterectomy History of cholecystectomy History of coronary artery stent placement x5 Family History Family History Mother Hypertension Heart disease Diabetes mellitus Other Arthritis Depression High cholesterol Kidney disorder Social History Social History Smoking packs per day: 1 Smoking cigarettes per day: 20.0 Years smoked: 30 Smoking pack-years: 30.00 Smoking status: Former smoker Tobacco type: cigarettes Second hand tobacco smoke exposure: No Smoking end date: 10/05/98 Additional smoking assessment comments: STATES 1PK/DAY/AGE 18 QUIT 1998 Alcohol intake: never Substance use: never Substance use type: does not use Living arrangements: with family Gender identity (if verbalized by the patient): Female Spiritual care concerns: No Exam Narrative: APPEARANCE: Well appearing, no pain, no distress, well-nourished. HEAD: normocephalic, atraumatic. EYES: PERRLA/EOMI, conjunctivae clear. NOSE: Normal no drainage EARS:TMS clear with good light reflex. THROAT: Pharynx clear, no exudate. NECK: Supple. No adenopathy, no masses. RESPIRATORY: Airway patent, respirations nonlabored. Clear to auscultation bilaterally, no rales, rhonchi, wheezing. CARDIOVASCULAR: Regular rate and rhythm without murmurs rubs or gallops. ABDOMINAL: Soft, non
== END 2023-02-22 16:55 | disposition home or self-care (01) ==
PROVIDERS: Emergency Provider Emergency Medicine; PCP Registered Nurse
DX: M79.672 Pain in left foot (principal); M25.572 Pain in left ankle and joints of left foot; I25.10 Atherosclerotic heart disease of native coronary artery without angina pectoris; E11.9 Type 2 diabetes mellitus without complications; E78.00 Pure hypercholesterolemia, unspecified; I11.9 Hypertensive heart disease without heart failure; I25.2 Old myocardial infarction; M19.011 Primary osteoarthritis, right shoulder; M81.0 Age-related osteoporosis without current pathological fracture; Z95.5 Presence of coronary angioplasty implant and graft; M17.0 Bilateral primary osteoarthritis of knee; Z86.73 Personal history of transient ischemic attack (TIA), and cerebral infarction without residual deficits; Z87.891 Personal history of nicotine dependence; Z90.710 Acquired absence of both cervix and uterus; Z90.49 Acquired absence of other specified parts of digestive tract; Z79.4 Long term (current) use of insulin; Z79.84 Long term (current) use of oral hypoglycemic drugs
CPT/HCPCS: 73610; 73630; 99283

== ENCOUNTER → 2023-08-07 09:57 | Outpatient (CLI) | payer MEDICARE, SELFPAY ==
--- NOTE | ~2023-08-07 | DEXA_ITS ---
Bone Density Report Name: LINDY ZULETA Age: 68 Sex: Female Ethnicity: White Date of : 1955 Indication: postmenopausal; screening for osteoporosis; height loss; prior fracture; hysterectomy; Referring Provider: Cass, Anitha Study: Bone densitometry was performed. Exam Date: August 07, 2023 Accession number: [id number] Bone Density: Region BMD T-score Z-score Classification AP Spine (L1-L4) 0.920 -1.2 0.8 Osteopenia Femoral Neck (Left) 0.493 -3.2 -1.6 Osteoporosis Total Hip (Left) 0.694 -2.0 -0.7 Osteopenia Femoral Neck (Right) 0.536 -2.8 -1.2 Osteoporosis Total Hip (Right) 0.725 -1.8 -0.4 Osteopenia Total Hip Mean 0.710 -1.9 -0.6 Osteopenia World Health Organization criteria for BMD impression classify patients as: Normal (T-score at or above -1.0), Osteopenia (T-score between -1.0 and -2.5), or Osteoporosis (T-score at or below -2.5). 10-year Fracture Risk: FRAX not reported because: Some T-score for Spine Total or Hip Total or Femoral Neck at or below -2.5 Clinical Information Provided by Patient: Has had a low trauma fracture Has the following medical conditions: Hysterectomy Patient maximum height was 61 Menopause Age: 41 No regular weight bearing exercise Drinks caffeinated beverages Onset of menses at age 14 Number of children 2 Missed period for more than 6 months in a row Impression: The patient has established osteoporosis, based on the Left Femoral Neck T-score and the existence of a prior fracture. The patient has risk factors, including: previous fracture. Discussion: HIGH RISK OF FRACTURE. BONE DENSITY IS UNDESIRABLY LOW AT ONE OR MORE SKELETAL SITES, CONSISTENT WITH POSTMENOPAUSAL OSTEOPOROSIS. This patient's lowest T-score, in a patient who has previously fractured, meets the World Health Organization's (WHO) criteria for severe osteoporosis. In untreated patients, the risk of osteoporotic fracture increases approximately two-fold for each 1.0 SD decrease in T-score. Low bone density is not the only risk factor for fracture; also consider factors such as patient's age, frailty or poor health, risk of falling, risk of injury, previous osteoporotic fracture, family history of osteoporosis, cigarette smoking, low body weight, etc. Not everyone with low bone mineral density has osteoporosis; osteomalacia and other metabolic bone disorders should also be considered. Patients who have osteoporosis should be evaluated for specific diseases and conditions (secondary causes) that may cause or contribute to bone loss. The [place] [employer] (AACE) and National Osteoporosis Foundation (NOF) recommend pharmacologic intervention for all postmenopausal women whose T-score is in this range. The patient should follow a healthful lifestyle (good nutrition with adequate reddy
--- NOTE | ~2023-08-07 | MM_ITS ---
EXAMINATION: MM screening sera BI w price HISTORY: Screening mammogram TECHNIQUE: Craniocaudal and mediolateral oblique 3-D tomosynthesis images were obtained and synthetic 2-D images were generated. CAD analysis was submitted and interpreted. COMPARISON: No prior mammogram is available for comparison at this institution. BREAST PARENCHYMAL COMPOSITION: There are scattered areas of fibroglandular density. FINDINGS: No suspicious mass, calcification, or architectural distortion are identified in either randi ast to suggest malignancy. IMPRESSION: 1. No mammographic evidence of malignancy. 2. Recommend routine screening mammography in one year. BI-RADS Category 1: Negative Reviewed, dictated and finalized at location A.
== END ==
PROVIDERS: PCP Registered Nurse; Visit Provider Registered Nurse
DX: Z12.31 Encounter for screening mammogram for malignant neoplasm of breast (principal); Z78.0 Asymptomatic menopausal state; M85.88 Other specified disorders of bone density and structure, other site; M81.0 Age-related osteoporosis without current pathological fracture; M85.852 Other specified disorders of bone density and structure, left thigh; M85.851 Other specified disorders of bone density and structure, right thigh
CPT/HCPCS: 77063; 77067; 77080